=== PATIENT | female | born 1975 | race Caucasian/White ===

== ENCOUNTER 2018-06-09 09:28 | Inpatient (IN) | payer MEDICAID, OTHER ==
[~2018-06-09] VITALS: Ht 170.2 cm; Wt 90.9 kg
[2018-06-09 10:12] LABS: BASOPHILS % (AUTO) 0.3 % (0-1); EOSINOPHILS # (AUTO) 0.2 X10'3 (0-0.9); EOSINOPHILS % (AUTO) 1.5 % (0-6); HEMATOCRIT 41.8 % (35.0-45.0); LYMPHOCYTES # (AUTO) 1.3 X10'3 (1.1-4.8); LYMPHOCYTES % (AUTO) 9.8 % (21-51); MEAN CORPUSCULAR HEMOGLOBIN 29.9 PG (27.0-31.0); MEAN CORPUSCULAR HGB CONC 33.4 % (33.0-36.5); MEAN CORPUSCULAR VOLUME 89.5 FL (78-98); MEAN PLATELET VOLUME 8.8 FL (7.4-10.4); MONOCYTES # (AUTO) 0.3 X10'3 (0-0.9); MONOCYTES % (AUTO) 2.4 % (2-12); NEUTROPHILS # (AUTO) 11.4 X10'3 (1.8-7.7); PLATELET COUNT 346 X10'3 (140-440); RED BLOOD COUNT 4.67 X10'6 (4.20-5.60); RED CELL DISTRIBUTION WIDTH 13.3 % (11.5-14.5); WHITE BLOOD COUNT 13.3 X10'3 (4.5-11.0)
[2018-06-09 10:19] LABS: URINE HCG NEGATIVE (NEG)
[2018-06-09 10:28] LABS: ALANINE AMINOTRANSFERASE 24 U/L (12-78); ALBUMIN 4.3 G/DL (3.4-5.0); ALBUMIN/GLOBULIN RATIO 0.9 (1.1-1.5); ALKALINE PHOSPHATASE 91 IU/L (46-116); AMYLASE 101 U/L (25-115); ANION GAP 10 (8-16); ASPARTATE AMINO TRANSFERASE 14 U/L (10-37); BILIRUBIN,TOTAL 0.4 MG/DL (0.1-1.0); BLOOD UREA NITROGEN 8 MG/DL (7-18); CALCIUM 9.3 MG/DL (8.5-10.1); CHLORIDE 99 MMOL/L (99-107); CREATININE 0.73 MG/DL (0.40-0.90); GLUCOSE 107 MG/DL (70-104); LIPASE 159 U/L (73-393); POTASSIUM 4.1 MMOL/L (3.5-5.1); SODIUM 137 MMOL/L (135-145); TOTAL CARBON DIOXIDE 27.9 MMOL/L (24-32); eGFR 87 ML/MIN
[2018-06-09 10:34] LABS: INR 1.1 INR; PROTHROMBIN TIME 10.7 SECONDS (9.0-12.0)
[2018-06-09 10:44] LABS: CLARITY,URINE CLOUDY (Clear); COLOR,URINE YELLOW (Yellow); GLUCOSE, URINE NEGATIVE (Neg); KETONES,URINE NEGATIVE (Neg); LEUKOCYTE ESTERASE ,URINE NEGATIVE (Neg); NITRITES, URINE NEGATIVE (Neg); OCCULT BLOOD,URINE NEGATIVE (Neg); PROTEIN,URINE NEGATIVE (Neg); UROBILINOGEN,URINE 0.2 E.U/dL (0.2-1.0)
[2018-06-09] MEDS ORDERED: SUCR1TAB34 PO (10:47)
[2018-06-09 10:48] LABS: UA COLLECTION TYPE CLN CATCH MIDSTREAM
[2018-06-09 10:55] LABS: AMORPHOUS PHOSPHATES 4+; MUCUS STRANDS MANY /LPF (Neg); SQUAMOUS EPITHELIAL CELL,UR MANY /LPF (FEW)
[2018-06-09 10:56] LABS: BACTERIA,URINE 1+ /HPF (Neg); RBC,URINE NONE SEEN /HPF (0-2); WBC,URINE 0-4 /HPF (0-4)
[2018-06-09] MEDS ORDERED: normal saline 1000ml 1,000 ML IV SCH (12:29)
[2018-06-09] MEDS ORDERED: magnesium 4gm in 100ml NS 100 ML IV PRN (12:30)
[2018-06-09] MEDS ORDERED: potassium Cl 40MEQ/NS 500ml 500 ML IV PRN ×2 (12:30)
[2018-06-09] MEDS ORDERED: magnesium Cl slow-release 64mg tablet PO PRN (12:30)
[2018-06-09] MEDS ORDERED: potassium Cl 20 mEq SR tablet PO PRN ×2 (12:30)
[2018-06-09] MEDS ORDERED: ondansetron/PF 4mg/2ml inj IV PRN ×2 (12:30→12:35)
[2018-06-09] MEDS ORDERED: morphine 4 MG/ML inj SYRINge IV PRN ×3 (12:30→12:35)
[2018-06-09] MEDS ORDERED: ringers solution, lacted 1,000 ML IV SCH (12:32)
[2018-06-09] MEDS ORDERED: labetalol 20mg/4ml (5mg/ml) syringe IV PRN (12:35)
[2018-06-09] MEDS ORDERED: hydrALAZINE 20mg/ml inj. IV PRN (12:35)
[2018-06-09] MEDS ORDERED: fentaNYL/PF 50MCG/1 ML 2ML syringe IV PRN ×2 (12:35)
[2018-06-09] MEDS ORDERED: CefTRIAXone/D5W-Rocephin 1gm 50 ML IV SCH (12:40)
--- NOTE | 2018-06-09 12:45 | NUR ---
DR. CRUM AT BEDSIDE.
--- NOTE | 2018-06-09 12:54 | NUR ---
DR. KEEN AT BEDSIDE.
[2018-06-09] MEDS ORDERED: ceFAZolin inj. 2,000 MG in dextrose 5%-water 50ml 50 ML IV ONE (13:00)
[2018-06-09] MEDS ORDERED: LIDOcaine 1% 30ml preserv. free vial ONE (13:07)
[2018-06-09] MEDS ORDERED: BUPIVAcaine/PF 2.5mg/ml (0.25%) 10ml vial ONE (13:07)
[2018-06-09] MEDS ORDERED: fentaNYL/PF 50MCG/1 ML 2ML syringe ONE (13:17)
[2018-06-09] MEDS ORDERED: rocuronium 10mg/ml inj IV ONE (13:17)
[2018-06-09] MEDS ORDERED: glycopyrrolate 0.2mg/ml inj ONE (13:17)
[2018-06-09] MEDS ORDERED: midazolam 2 mg/2 ml injection ONE (13:17)
[2018-06-09] MEDS ORDERED: LIDOcaine 2% (20mg/ml) 5ml vial ONE (13:17)
[2018-06-09] MEDS ORDERED: neostigmine methylsulfate 1 MG/ML 10ml vial ONE (13:17)
[2018-06-09] MEDS ORDERED: ondansetron/PF 4mg/2ml inj ONE (13:17)
[2018-06-09] MEDS ORDERED: dexamethasone sod phosphate 4mg/ml inj. ONE (13:17)
[2018-06-09] MEDS ORDERED: propofol inj 20 ML IV ONE (13:17)
[2018-06-09] MEDS ORDERED: sevoflurane 250ml liquid IH ONE (13:34)
[2018-06-09] MEDS ORDERED: labetalol 5mg/ml 20ml inj. IV ONE (14:18)
[2018-06-09] MEDS ORDERED: ketorolac trometh. 30mg/ml inj. ONE (14:39)
[2018-06-09 15:00] VITALS: BP 126/70
[2018-06-09] MEDS ORDERED: HYDROcodone/acetaminophen 5mg/325mg tablet PO PRN (15:00)
--- NOTE | 2018-06-09 15:00 | NUR ---
Received from OR via SURGICAL BED, accompanied by Anesthesiologist DR. JALLOH and report given by Anesthesiolgist. PT ARRIVED WITH O2 VIA MASK AT 10L. VSS. 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 ALFARO WITH GOOD CSM. DRESSINGS TO ABD CDI.
[2018-06-09 15:10] VITALS: BP 137/79
[2018-06-09 15:20] VITALS: BP 145/77
[2018-06-09 15:30] VITALS: BP 146/73
[2018-06-09 15:40] VITALS: BP 137/76
--- NOTE | 2018-06-09 15:49 | NUR ---
Discharge criteria met, discharge instructions given, demonstrates verbal understanding. Discharged home in good condition. TO POV VIA WC FOR DC. DAUGHTER HERE TO DRIVE.
[2018-06-09] MEDS ORDERED: metroNIDAZOLE-Flagyl 500mg/NS 100 ML IV SCH (16:00)
[2018-06-10] MEDS ORDERED: K and/or MAG REPLACEMENT MC SCH (08:00)
== END 2018-06-09 15:50 | disposition home or self-care (01) | DRG 263 ==
LOC: ER 09:29 → PACU 12:29
PROVIDERS: ADMIT Internal Medicine; ATTEND Surgery
PROC: 0FT44ZZ Resection of Gallbladder, Percutaneous Endoscopic Approach (ICD-10-PCS; principal; 2018-06-09 13:34)
DX: K81.0 Acute cholecystitis (principal); F17.290 Nicotine dependence, other tobacco product, uncomplicated; Z79.899 Other long term (current) drug therapy; Z82.49 Family history of ischemic heart disease and other diseases of the circulatory system
CPT/HCPCS: 36415; 76700; 80053; 81001; 81025; 82150; 83690; 85025; 85610; 99285; A7000; J0690; J0696; J1100; J1885; J2001; J2250; J2405; J2704; J2710; J3010; J3490; J7030; J7060; J7120